=== PATIENT | female | born 1975 ===

== ENCOUNTER 2022-01-12 10:51 | Outpatient (CLI) | payer OTHER | END 2022-01-12 10:55 | disposition home or self-care (01) | LOC: MAMO-SONO 10:51 | PROVIDERS: ATTEND Obstetrics & Gynecology | DX: Z12.31 Encounter for screening mammogram for malignant neoplasm of breast (principal); N60.11 Diffuse cystic mastopathy of right breast; N60.12 Diffuse cystic mastopathy of left breast ==

== ENCOUNTER 2022-01-13 08:26 | Outpatient (CLI) | payer OTHER | END 2022-01-13 08:27 | disposition home or self-care (01) | LOC: LAB 08:26 | PROVIDERS: ATTEND Obstetrics & Gynecology | DX: D64.9 Anemia, unspecified (principal); R79.89 Other specified abnormal findings of blood chemistry; N39.0 Urinary tract infection, site not specified; E03.9 Hypothyroidism, unspecified; E78.5 Hyperlipidemia, unspecified; E55.9 Vitamin D deficiency, unspecified ==

== ENCOUNTER 2023-04-23 11:03 | Outpatient (CLI) | payer OTHER ==
[2023-04-23 12:48] LABS: MEAN CORPUSCULAR HGB CONC 29.3 g/dl (32.0-36.0); PLATELET COUNT 263 K/uL (150-450); RED BLOOD COUNT 3.63 M/uL (4.00-6.00); RED CELL DISTRIBUTION WIDTH 21.7 % (11.5-14.5)
[2023-04-23 12:49] LABS: ALBUMIN 3.3 gm/dL (3.4-5.0); BILIRUBIN TOTAL 0.29 mg/dL (0.3-1.2); CALCIUM 8.4 mg/dL (8.5-10.1); CHOL HDL RATIO 3.2 (0-5.0); CREATININE SERUM 0.74 mg/dL (0.55-1.02); FREE TRIODOTIRONINE 2.19 pg/ml (2.18-3.98); GFR 84.49; GLOBULINA 3.7 G/DL (2.4-3.5); POTASSIUM 3.78 mEq/L (3.5-5.1); T4 FREE 0.89 NG/ML (0.76-1.46); TSH 0.879 uIU/mL (0.358-3.74)
[2023-04-23 12:57] LABS: PH,URINE 5.5 (5.0-8.0); URINE APPEARANCE Clear; URINE BILIRRUBIN Negative (NEGATIVE); URINE BLOOD Moderate; URINE COLOR Yellow; URINE GLUCOSE Negative (NEGATIVE); URINE LEUKOCYTE Negative; URINE NITRATE Negative; URINE PROTEIN Negative (NEGATIVE); URINE UROBILINOGEN 0.2 E.U./dl
[2023-04-23 12:58] LABS: URINE EPITHELIAL CELLS 28.2 uL (0.0-38.8); URINE RBC 2.2 uL (0.0-20.8); URINE WBC 35.8 uL (0.0-23.2)
[2023-04-23 13:38] LABS: MEAN CORPUSCULAR HEMOGLOBIN 16.8 pg (27.00-32.0)
[2023-04-23 13:39] LABS: MEAN CELL VOLUME 57.3 fL (80.00-100.00)
[2023-04-23 13:45] LABS: HEMATOCRIT 20.8 % (36.0-45.00); HEMOGLOBIN 6.1 g/dL (12.0-15.00)
== END 2023-04-23 11:05 | disposition home or self-care (01) ==
LOC: LAB 11:03
PROVIDERS: ATTEND General Practice
DX: E21.3 Hyperparathyroidism, unspecified (principal); E55.9 Vitamin D deficiency, unspecified; E11.9 Type 2 diabetes mellitus without complications; N25.89 Other disorders resulting from impaired renal tubular function; E03.8 Other specified hypothyroidism; E78.89 Other lipoprotein metabolism disorders

== ENCOUNTER 2023-10-01 07:39 | Outpatient (CLI) | payer OTHER ==
[2023-10-01 09:34] LABS: MEAN CORPUSCULAR HGB CONC 29.4 g/dl (32.0-36.0); PLATELET COUNT 262 K/uL (150-450); RED CELL DISTRIBUTION WIDTH 21.8 % (11.5-14.5)
[2023-10-01 09:46] LABS: PH,URINE 5.5 (5.0-8.0); URINE APPEARANCE Clear; URINE BILIRRUBIN Negative (NEGATIVE); URINE BLOOD Negative; URINE COLOR Yellow; URINE GLUCOSE Negative (NEGATIVE); URINE LEUKOCYTE Negative; URINE NITRATE Negative; URINE PROTEIN Negative (NEGATIVE); URINE UROBILINOGEN 0.2 E.U./dl
[2023-10-01 09:49] LABS: URINE BACTERIA 57.9 uL (0.0-1933)
[2023-10-01 09:51] LABS: MEAN CORPUSCULAR HEMOGLOBIN 16.9 pg (27.00-32.0)
[2023-10-01 09:54] LABS: HEMATOCRIT 20.8 % (36.0-45.00); HEMOGLOBIN 6.1 g/dL (12.0-15.00); MEAN CELL VOLUME 57.7 fL (80.00-100.00)
[2023-10-01 10:05] LABS: URINE EPITHELIAL CELLS 0.9 uL (0.0-38.8); URINE RBC 1.1 uL (0.0-20.8)
[2023-10-01 10:53] LABS: ALBUMIN 3.5 gm/dL (3.4-5.0); BILIRUBIN TOTAL 0.36 mg/dL (0.3-1.2); CHOL HDL RATIO 2.7 (0-5.0); CREATININE SERUM 0.77 mg/dL (0.55-1.02); FREE TRIODOTIRONINE 2.17 pg/ml (2.18-3.98); GFR 80.7; GLOBULINA 3.7 G/DL (2.4-3.5); POTASSIUM 4.16 mEq/L (3.5-5.1); T4 FREE 0.85 NG/ML (0.76-1.46); TOTAL PROTEIN 7.2 gm/dL (6.4-8.2); TSH 1.3 uIU/mL (0.358-3.74)
== END 2023-10-01 07:47 | disposition home or self-care (01) ==
LOC: LAB 07:39
PROVIDERS: ATTEND Obstetrics & Gynecology
DX: N30.00 Acute cystitis without hematuria (principal); E55.9 Vitamin D deficiency, unspecified; E78.5 Hyperlipidemia, unspecified; E28.2 Polycystic ovarian syndrome; R73.01 Impaired fasting glucose; R97.1 Elevated cancer antigen 125 [CA 125]; N92.6 Irregular menstruation, unspecified

== ENCOUNTER 2023-10-05 07:56 | Outpatient (CLI) | payer OTHER | END 2023-10-05 07:59 | disposition home or self-care (01) | LOC: MAMO-SONO 07:56 | PROVIDERS: ATTEND Obstetrics & Gynecology | DX: N64.4 Mastodynia (principal); N60.19 Diffuse cystic mastopathy of unspecified breast ==

== ENCOUNTER 2025-01-12 07:31 | Outpatient (CLI) | payer OTHER ==
[2025-01-12 08:21] LABS: BASO % 0.7 % (0.1-1.2); EOS # 0.29 (0.04-0.54); EOS % 3.5 % (0.7-7.0); LYMPH # 1.34 (1.18-3.74); LYMPH % 16.0 % (19.3-53.1); MONO # 0.51 (0.24-0.82); MONO % 6.1 % (4.7-12.5); NEUT # 6.10 (1.56-6.13); NEUT % 72.5 % (34.0-71.1)
[2025-01-12 08:30] LABS: RED CELL DISTRIBUTION WIDTH 27.4 % (11.6-14.4)
[2025-01-12 08:36] LABS: URINE APPEARANCE Clear; URINE BILIRRUBIN Negative (NEGATIVE); URINE BLOOD Negative; URINE COLOR Yellow; URINE GLUCOSE Negative (NEGATIVE); URINE KETONE Negative (NEGATIVE); URINE LEUKOCYTE Negative; URINE NITRATE Negative; URINE PROTEIN Negative (NEGATIVE); URINE UROBILINOGEN 0.2 E.U./dl
[2025-01-12 08:37] LABS: URINE BACTERIA 79.2 uL (0.0-1933); URINE EPITHELIAL CELLS 2.7 uL (0.0-38.8); URINE RBC 2.0 uL (0.0-20.8); URINE WBC 4.6 uL (0.0-23.2)
[2025-01-12 08:48] LABS: URINE CAST 0.29 uL (0.0-1.40)
[2025-01-12 09:20] LABS: ALT/SGPT 18.0 U/L (12-78); AST/SGOT 11.0 U/L (15-37); BILIRUBIN TOTAL 0.28 mg/dL (0.3-1.2); BUN CREA RATIO 18.0 (7.0-25.0); CHOL HDL RATIO 2.7 (0-5.0); CREATININE SERUM 0.8 mg/dL (0.55-1.02); GFR 76.56; GLOBULINA 3.1 G/DL (2.4-3.5); GLUCOSE FASTING 102.0 mg/dL (65-100); HDL 40.0 mg/dl (40-60); LDL 56.0 mg/dl (0-130); OSMOLALITY SERUM 284.0 MOSM/KG (275-295); VLDL 11.0 (0-39)
[2025-01-12 10:22] LABS: TSH 1.04 uIU/mL (0.358-3.74)
== END 2025-01-12 07:33 | disposition home or self-care (01) ==
LOC: LAB 07:31
PROVIDERS: ATTEND Obstetrics & Gynecology
DX: E55.9 Vitamin D deficiency, unspecified (principal); E78.00 Pure hypercholesterolemia, unspecified; N39.0 Urinary tract infection, site not specified; R73.01 Impaired fasting glucose; Z11.4 Encounter for screening for human immunodeficiency virus [HIV]; Z11.3 Encounter for screening for infections with a predominantly sexual mode of transmission; N93.9 Abnormal uterine and vaginal bleeding, unspecified

== ENCOUNTER 2025-01-15 11:01 | Outpatient (CLI) | payer OTHER | END 2025-01-15 11:04 | disposition home or self-care (01) | LOC: MAMO-SONO 11:01 | PROVIDERS: ATTEND Obstetrics & Gynecology | DX: N60.11 Diffuse cystic mastopathy of right breast (principal); N60.12 Diffuse cystic mastopathy of left breast; N93.9 Abnormal uterine and vaginal bleeding, unspecified ==

== ENCOUNTER 2025-01-18 17:18 | Inpatient (IN) | payer OTHER ==
[~2025-01-18] VITALS: Ht 170.2 cm; Wt 105.7 kg
[2025-01-18] MEDS ORDERED: LOSARTAN-HCTZ1 EAC1 (17:36)
[2025-01-18] MEDS ORDERED: RINGERS SOLUTION,LACTATED 1,000 ML IV SCH (18:15)
[2025-01-18 18:24] LABS: BASO % 0.7 % (0.1-1.2); EOS # 0.21 (0.04-0.54); EOS % 2.1 % (0.7-7.0); LYMPH # 1.40 (1.18-3.74); LYMPH % 14.2 % (19.3-53.1); MONO # 0.69 (0.24-0.82); MONO % 7.0 % (4.7-12.5); NEUT # 7.48 (1.56-6.13); NEUT % 75.6 % (34.0-71.1)
[2025-01-18 18:27] LABS: RED CELL DISTRIBUTION WIDTH 30.6 % (11.6-14.4)
[2025-01-18 18:46] LABS: INR 1.06
[2025-01-18 19:08] LABS: ALT/SGPT 22.0 U/L (12-78); AST/SGOT 30.0 U/L (15-37); BILIRUBIN TOTAL 0.27 mg/dL (0.3-1.2); BUN CREA RATIO 14.0 (7.0-25.0); CREATININE SERUM 1.01 mg/dL (0.55-1.02); GFR 58.5; GLOBULINA 3.7 G/DL (2.4-3.5); GLUCOSE FASTING 113.0 mg/dL (65-100); OSMOLALITY SERUM 286.0 MOSM/KG (275-295)
[2025-01-18 21:15] VITALS: BP 125/82; O2SAT 100
[2025-01-18 22:08] VITALS: BP 125/82
[2025-01-19 02:34] VITALS: BP 155/83
[2025-01-19 08:00] VITALS: BP 127/75
[2025-01-19] MEDS ORDERED: LOSARTAN/HYDROCHLOROTHIAZIDE 1 UDTAB TABLET PO SCH (09:00)
[2025-01-19 15:37] LABS: BASO % 0.8 % (0.1-1.2); EOS # 0.27 (0.04-0.54); EOS % 3.4 % (0.7-7.0); LYMPH # 1.56 (1.18-3.74); LYMPH % 19.7 % (19.3-53.1); MEAN PLATELET VOLUME 11.50 fl (9.4-12.4); MONO # 0.64 (0.24-0.82); MONO % 8.1 % (4.7-12.5); NEUT # 5.33 (1.56-6.13); NEUT % 67.5 % (34.0-71.1)
[2025-01-19 15:44] LABS: RED CELL DISTRIBUTION WIDTH 29.8 % (11.6-14.4)
[2025-01-19 16:28] VITALS: BP 133/74
[2025-01-20] VITALS: BP 130/83
[2025-01-20 08:12] VITALS: BP 143/84
[2025-01-20 14:51] LABS: BASO % 0.8 % (0.1-1.2); EOS # 0.31 (0.04-0.54); EOS % 3.4 % (0.7-7.0); LYMPH # 1.75 (1.18-3.74); LYMPH % 19.0 % (19.3-53.1); MONO # 0.77 (0.24-0.82); MONO % 8.4 % (4.7-12.5); NEUT # 6.25 (1.56-6.13); NEUT % 68.0 % (34.0-71.1)
[2025-01-20 14:53] LABS: RED CELL DISTRIBUTION WIDTH 29.2 % (11.6-14.4)
[2025-01-20 18:06] VITALS: BP 128/83
[2025-01-20] MEDS ORDERED: ACETAMINOPHEN 500 MG GEL..CAP PO PRN (18:30)
[2025-01-21] VITALS: BP 148/90
[2025-01-21 08:00] VITALS: BP 128/83
[2025-01-21 16:00] VITALS: BP 134/82
[2025-01-22] VITALS: BP 137/80
[2025-01-22 00:49] LABS: BASO % 0.9 % (0.1-1.2); EOS # 0.29 (0.04-0.54); EOS % 2.8 % (0.7-7.0); LYMPH # 1.64 (1.18-3.74); LYMPH % 16.0 % (19.3-53.1); MONO # 0.78 (0.24-0.82); MONO % 7.6 % (4.7-12.5); NEUT # 7.45 (1.56-6.13); NEUT % 72.5 % (34.0-71.1)
[2025-01-22 00:53] LABS: RED CELL DISTRIBUTION WIDTH 27.8 % (11.6-14.4)
[2025-01-22 08:15] VITALS: BP 130/83
[2025-01-22 12:38] LABS: BASO % 1.0 % (0.1-1.2); EOS # 0.29 (0.04-0.54); EOS % 3.6 % (0.7-7.0); LYMPH # 1.56 (1.18-3.74); LYMPH % 19.2 % (19.3-53.1); MEAN PLATELET VOLUME 10.90 fl (9.4-12.4); MONO # 0.69 (0.24-0.82); MONO % 8.5 % (4.7-12.5); NEUT # 5.46 (1.56-6.13); NEUT % 67.3 % (34.0-71.1)
[2025-01-22 12:41] LABS: RED CELL DISTRIBUTION WIDTH 27.4 % (11.6-14.4)
[2025-01-22 13:21] LABS: BUN CREA RATIO 13.0 (7.0-25.0); CREATININE SERUM 0.8 mg/dL (0.55-1.02); GFR 76.56; GLUCOSE FASTING 69.0 mg/dL (65-100); OSMOLALITY SERUM 282.0 MOSM/KG (275-295)
[2025-01-22 16:00] VITALS: BP 144/88
[2025-01-23] VITALS: BP 139/70
[2025-01-23 09:27] VITALS: BP 130/85
== END 2025-01-23 13:23 | disposition home or self-care (01) | DRG 761 ==
LOC: ER 17:18 → OB/GYN 21:06
PROVIDERS: General Practice; Internal Medicine; ADMIT Obstetrics & Gynecology; ATTEND Obstetrics & Gynecology
PROC: 30233N1 Transfusion of Nonautologous Red Blood Cells into Peripheral Vein, Percutaneous Approach (ICD-10-PCS; principal; 2025-01-19)
DX: N93.9 Abnormal uterine and vaginal bleeding, unspecified (principal); D64.9 Anemia, unspecified

== ENCOUNTER 2025-04-11 08:59 | Outpatient (CLI) | payer OTHER ==
[~2025-04-11 08:59] MED LIST: LOSARTAN-HCTZ1 EAC1
[2025-04-11 09:36] LABS: BASO % 0.9 % (0.1-1.2); EOS # 0.20 (0.04-0.54); EOS % 2.4 % (0.7-7.0); LYMPH # 1.42 (1.18-3.74); LYMPH % 17.3 % (19.3-53.1); MEAN PLATELET VOLUME 11.60 fl (9.4-12.4); MONO # 0.57 (0.24-0.82); MONO % 6.9 % (4.7-12.5); NEUT # 5.94 (1.56-6.13); NEUT % 72.3 % (34.0-71.1); RED CELL DISTRIBUTION WIDTH 15.9 % (11.6-14.4)
== END 2025-04-11 14:05 | disposition home or self-care (01) ==
LOC: LAB 08:59
PROVIDERS: ATTEND Student in an Organized Health Care Education/Training Program
DX: D25.9 Leiomyoma of uterus, unspecified (principal); Z12.11 Encounter for screening for malignant neoplasm of colon; D64.9 Anemia, unspecified

== ENCOUNTER 2025-04-13 09:10 | Outpatient (CLI) | payer OTHER ==
[2025-04-13 09:55] LABS: ob NEGATIVE (NEGATIVE)
== END 2025-04-13 09:12 | disposition home or self-care (01) ==
LOC: LAB 09:10
PROVIDERS: ATTEND Student in an Organized Health Care Education/Training Program
DX: D25.9 Leiomyoma of uterus, unspecified (principal); Z12.11 Encounter for screening for malignant neoplasm of colon; D64.9 Anemia, unspecified

== ENCOUNTER 2025-05-09 08:15 | Inpatient (IN) | payer OTHER ==
[~2025-05-09] VITALS: Ht 170.2 cm; Wt 107.5 kg
[2025-05-09] MEDS ORDERED: NORETHIND-ETH1 EAC1 PO (10:10)
[2025-05-09 10:11] VITALS: BP 149/92
[2025-05-09 10:29] LABS: BASO % 0.9 % (0.1-1.2); EOS # 0.20 (0.04-0.54); EOS % 2.4 % (0.7-7.0); LYMPH # 1.61 (1.18-3.74); LYMPH % 19.0 % (19.3-53.1); MEAN PLATELET VOLUME 12.30 fl (9.4-12.4); MONO # 0.51 (0.24-0.82); MONO % 6.0 % (4.7-12.5); NEUT # 6.06 (1.56-6.13); NEUT % 71.3 % (34.0-71.1); RED CELL DISTRIBUTION WIDTH 15.6 % (11.6-14.4)
[2025-05-09 10:33] LABS: URINE APPEARANCE Clear; URINE BILIRRUBIN Negative (NEGATIVE); URINE BLOOD Negative; URINE COLOR Yellow; URINE GLUCOSE Negative (NEGATIVE); URINE KETONE Negative (NEGATIVE); URINE LEUKOCYTE Negative; URINE NITRATE Negative; URINE PROTEIN Trace (NEGATIVE); URINE UROBILINOGEN 0.2 E.U./dl
[2025-05-09 10:35] LABS: URINE BACTERIA 204.0 uL (0.0-1933); URINE EPITHELIAL CELLS 8.9 uL (0.0-38.8); URINE RBC 9.9 uL (0.0-20.8); URINE WBC 5.0 uL (0.0-23.2)
[2025-05-09 10:47] LABS: URINE CAST 0.14 uL (0.0-1.40)
[2025-05-09 11:00] LABS: INR 1.05
[2025-05-09 11:46] LABS: ALT/SGPT 29.0 U/L (12-78); AST/SGOT 15.0 U/L (15-37); BILIRUBIN TOTAL 0.3 mg/dL (0.3-1.2); BUN CREA RATIO 11.0 (7.0-25.0); CREATININE SERUM 0.89 mg/dL (0.55-1.02); GFR 67.69; GLOBULINA 3.7 G/DL (2.4-3.5); GLUCOSE FASTING 103.0 mg/dL (65-100); OSMOLALITY SERUM 281.0 MOSM/KG (275-295)
[2025-05-09 13:57] VITALS: BP 160/80
[2025-05-23] MEDS ORDERED: METRONIDAZOLE/SODIUM CHLORIDE 500 MG/100 ML PIGGYBACK IV ONE ×2 (10:23→14:45)
[2025-05-23] MEDS ORDERED: CEFAZOLIN SODIUM 1,000 MG VIAL ONE (10:23)
[2025-05-23] MEDS ORDERED: POVIDONE-IODINE 118 ML BOTT TOP ONE ×3 (12:00→14:45)
[2025-05-23] MEDS ORDERED: CEFAZOLIN SODIUM 1,000 MG VIAL IV ONE (14:45)
[2025-05-23] MEDS ORDERED: VISTASEAL DUAL APPICATOR 1 EACH APPL TOP ONE (15:45)
[2025-05-23] MEDS ORDERED: THROMBIN,HU/FIBRINOGEN/CALCIUM 10 ML SYRINGE TOP ONE (15:45)
[2025-05-23] MEDS ORDERED: SUGAMMADEX SODIUM 200 MG/2 ML VIAL IV ONE (16:15)
[2025-05-23] MEDS ORDERED: OxyCODONE HCL 5 MG TABLET (ROXICODONE) PO PRN (16:30)
[2025-05-23] MEDS ORDERED: RINGERS SOLUTION,LACTATED 1,000 ML IV SCH (16:30)
[2025-05-23] MEDS ORDERED: DOCUSATE SODIUM 100MG CAP PO SCH (17:00)
[2025-05-23] MEDS ORDERED: ACETAMINOPHEN 500 MG GEL..CAP PO SCH (17:00)
[2025-05-23 20:44] VITALS: BP 160/80
[2025-05-24] VITALS: BP 145/82
[2025-05-24 06:48] LABS: BASO % 0.3 % (0.1-1.2); EOS # 0.06 (0.04-0.54); EOS % 0.5 % (0.7-7.0); LYMPH # 1.40 (1.18-3.74); LYMPH % 11.6 % (19.3-53.1); MEAN PLATELET VOLUME 11.90 fl (9.4-12.4); MONO # 0.94 (0.24-0.82); MONO % 7.8 % (4.7-12.5); NEUT # 9.53 (1.56-6.13); NEUT % 79.4 % (34.0-71.1); RED CELL DISTRIBUTION WIDTH 16.0 % (11.6-14.4)
[2025-05-24 07:41] LABS: ALT/SGPT 62.0 U/L (12-78); AST/SGOT 58.0 U/L (15-37); BILIRUBIN TOTAL 0.47 mg/dL (0.3-1.2); BUN CREA RATIO 11.0 (7.0-25.0); CREATININE SERUM 1.05 mg/dL (0.55-1.02); GFR 55.94; GLOBULINA 3.2 G/DL (2.4-3.5); GLUCOSE FASTING 152.0 mg/dL (65-100); OSMOLALITY SERUM 288.0 MOSM/KG (275-295)
[2025-05-24 08:47] VITALS: BP 132/77
[2025-05-24 15:35] LABS: ALT/SGPT 67.0 U/L (12-78); AST/SGOT 66.0 U/L (15-37); BILIRUBIN TOTAL 0.36 mg/dL (0.3-1.2); BUN CREA RATIO 11.0 (7.0-25.0); CREATININE SERUM 0.99 mg/dL (0.55-1.02); GFR 59.87; GLOBULINA 3.6 G/DL (2.4-3.5); GLUCOSE FASTING 98.0 mg/dL (65-100); OSMOLALITY SERUM 282.0 MOSM/KG (275-295)
[2025-05-24 16:00] VITALS: BP 140/96
[2025-05-24] MEDS ORDERED: OXYCODONE HCL5 MG PO (16:07)
[2025-05-24] MEDS ORDERED: IBUPROFEN800 MG PO (16:07)
[2025-05-24] MEDS ORDERED: PAIN RELIEVER500 M2 PO (16:07)
[2025-05-24] MEDS ORDERED: COLACE100 MG PO (16:07)
== END 2025-05-24 16:32 | disposition home or self-care (01) | DRG 743 ==
LOC: SURH 05-23 08:15 → O/R 05-23 09:00 → SURH 05-23 17:45 → OB/GYN 05-23 17:46
PROVIDERS: ADMIT Student in an Organized Health Care Education/Training Program; ATTEND Student in an Organized Health Care Education/Training Program
PROC: 0UT74ZZ Resection of Bilateral Fallopian Tubes, Percutaneous Endoscopic Approach (ICD-10-PCS; 2025-05-23)
PROC: 0UBC4ZZ Excision of Cervix, Percutaneous Endoscopic Approach (ICD-10-PCS; 2025-05-23)
PROC: 0TJB8ZZ Inspection of Bladder, Via Natural or Artificial Opening Endoscopic (ICD-10-PCS; 2025-05-23)
PROC: 0UT94ZZ Resection of Uterus, Percutaneous Endoscopic Approach (ICD-10-PCS; principal; 2025-05-23 17:45)
DX: D25.1 Intramural leiomyoma of uterus (principal); D25.0 Submucous leiomyoma of uterus; N80.03 Adenomyosis of the uterus; N84.1 Polyp of cervix uteri; N80.203 Endometriosis of bilateral fallopian tubes, unspecified depth